=== PATIENT | female | born 1990 | race African-American/Black ===

== ENCOUNTER 2017-06-16 15:16 | Emergency (ER) | payer SELFPAY ==
[~2017-06-16] VITALS: Ht 170.2 cm; Wt 73.5 kg
[2017-06-16 15:47] VITALS: BP 120/84
--- NOTE | 2017-06-16 15:56 | NUR ---
Patient to bed 04.
--- NOTE | 2017-06-16 16:30 | NUR ---
ASSUMED CARE OF PATIENT; PT PRESENTS TO ER W/C/O DIZZINESS, GENERALIZED WEAKNESS SINCE INTERITTENTLY; PATIENT IS A&OX4; PERRLA; LS CLEAR BL; RR ARE EVEN AND UNLABORED; NO ACUTE RESP DISTRESS NOTED; PT DENIES ABD PAIN; ABD SOFT AND NON-TENDER TO PALPALTION; PATIENT REPOST NAUSEA BUT DENIES VOMITTING; PT REPORTS DECREASED APPETITE; PATIENT REPORTS LIGHTHEADNESS AND GENERAZLED WEAKNESS X 1 MONTH; PT REPORTS HEMATURIA SINCE ; PT STATES " DOCTORS SAY IT WILL RESOLVE OVER TIME; PATIENT REPORTS "HX BLOOD TRANSFUSION IN 2008 FOR ANEMIA, REPEATED UTI'S" ER [employer]OTE[employer] SUPERVISOR IS BY BEDSIDE EXAMINING PATIENT; ALL NEEDS MET AT THIS TIME; VSS; WILL CONTINUE TO MONITOR
[2017-06-16 16:40] LABS: BASOPHILS # (AUTO) 0.2 K/uL (0.00-0.22); BASOPHILS % (AUTO) 3.1 % (0.0-2.0); EOSINOPHILS # (AUTO) 0.1 K/uL (0-0.4); EOSINOPHILS % (AUTO) 1.6 % (0.0-4.0); HEMATOCRIT 37.4 % (36-48); HEMOGLOBIN 11.7 g/dL (12.0-16.0); LYMPHOCYTES # (AUTO) 1.2 K/uL (2.5-16.5); LYMPHOCYTES % (AUTO) 22.9 % (20.5-51.1); MEAN CORPUSCULAR HEMOGLOBIN 27 pg (27-31); MEAN CORPUSCULAR HGB CONC 31 g/dL (33-37); MEAN CORPUSCULAR VOLUME 88 fL (80-94); MONOCYTES # (AUTO) 0.5 K/uL (0.8-1.0); MONOCYTES % (AUTO) 10.6 % (1.7-9.3); NEUTROPHILS # (AUTO) 3.2 K/uL (1.8-7.7); NEUTROPHILS % (AUTO) 61.8 % (42.2-75.2); PLATELET COUNT (AUTO) 155 K/uL (140-450); RED BLOOD CELL COUNT(AUTO) 4.26 MIL/uL (4.20-5.40); RED CELL DISTRIBUTION WIDTH 14.2 % (11.6-13.7); WHITE BLOOD COUNT (AUTO) 5.2 K/uL (4.8-10.8)
[2017-06-16 16:40] LABS: APPEARANCE,URINE TURBID (CLEAR); BILIRUBIN,URINE 1+ (NEGATIVE); BLOOD, URINE 3+ (NEGATIVE); COLOR,URINE RED (YELLOW); LEUKOCYTE ESTERASE ,URINE NEGATIVE (NEGATIVE); NITRITE, URINE POSITIVE (NEGATIVE); PH,URINE 5.5 (5.0-9.0); PROTEIN,URINE 3+ (NEGATIVE); UGLUCOSE NEGATIVE (NEGATIVE)
[2017-06-16 16:43] LABS: ICTOTEST NEGATIVE (NEGATIVE)
[2017-06-16 16:44] LABS: BACTERIA,URINE 4+ /HPF (None Seen); RBC,URINE TOO NUMEROUS TO COUN /HPF (0-5); SQUAMOUS EPITHELIAL CELL,UR 4-10 (MOD) /LPF (0-3 (FEW)); WBC,URINE 6-15 (FEW) /HPF (0-5)
--- NOTE | 2017-06-16 16:44 | NUR ---
PT TO XRAY VIA WHEELCHAIR ACCOMPANIED BY BREWER HELPER
[2017-06-16 16:46] LABS: ANION GAP 12.9 (8-16); CALCIUM 8.4 mg/dL (8.5-10.1); CARBON DIOXIDE 25.9 mmol/L (21-32); CREATININE 0.8 mg/dL (0.6-1.3); POTASSIUM 3.8 mmol/L (3.5-5.1)
--- NOTE | 2017-06-16 16:50 | NUR ---
Patient back from XRAY via wheelchair per tech
[2017-06-16 17:32] VITALS: BP 122/70
--- NOTE | 2017-06-16 17:32 | NUR ---
Patient discharged with v/s stable. Written and verbal after care instructions given and explained. Patient alert, oriented and verbalized understanding of instructions. Ambulatory with steady gait. All questions addressed prior to discharge. ID band removed. Patient advised to follow up with PMD. Rx of MACROBID 100MG given. Patient educated on indication of medication including possible reaction and side effects. Opportunity to ask questions provided and answered.
== END 2017-06-16 17:32 | disposition home or self-care (01) ==
LOC: MED 15:16
DX: N39.0 Urinary tract infection, site not specified (principal)
CPT/HCPCS: 36415; 71020; 80048; 81001; 81025; 85025; 87086; 87186; 99285

== ENCOUNTER 2019-07-23 08:08 | Emergency (ER) | payer MEDICAID ==
[~2019-07-23] VITALS: Ht 170.2 cm; Wt 79.4 kg
--- NOTE | 2019-07-23 08:08 | NUR ---
Patient BIBA BLS, transferred to bed 8. RN evaluating patient at bedside.
[2019-07-23 08:09] VITALS: BP 129/90
--- NOTE | 2019-07-23 08:10 | NUR ---
PATIENT BIBA WITH C/O SERVERE LUQ ABDOMINAL PAIN WITH NAUSEA SINCE 0600. AAOX4, LUNGS CLEAR BL; HR EVEN AND REGULAR; PT DENIES ANY FEVER, CP, SOB, OR COUGH AT THIS TIME; SKIN IS PINK/WARM/DRY; PATIENT STATES PAIN OF 10/10 AT THIS TIME; VSS; PATIENT POSITIONED FOR COMFORT; HOB ELEVATED; BEDRAILS UP X2; BED DOWN. ER MD MADE AWARE OF PT STATUS.
--- NOTE | 2019-07-23 08:15 | NUR ---
Patient being evaluated by physician at bedside.
[2019-07-23] MEDS ORDERED: ACETAMINOPHEN 325 MG TAB PO ONE (08:20)
--- NOTE | 2019-07-23 09:00 | NUR ---
NOT ABLE TO COLLECT URINE AT THIS TIME, DR. ROOT AWARE.
[2019-07-23 09:27] LABS: BASOPHILS % (AUTO) 0.4 % (0.0-2.0); EOSINOPHILS # (AUTO) 0.1 K/uL (0-0.4); EOSINOPHILS % (AUTO) 0.6 % (0.0-4.0); HEMATOCRIT 24.4 % (36-48); HEMOGLOBIN 7.3 g/dL (12.0-16.0); LYMPHOCYTES # (AUTO) 0.8 K/uL (2.5-16.5); LYMPHOCYTES % (AUTO) 8.8 % (20.5-51.1); MEAN CORPUSCULAR HEMOGLOBIN 22 pg (27-31); MEAN CORPUSCULAR HGB CONC 30 g/dL (33-37); MEAN CORPUSCULAR VOLUME 74.3 fL (80-94); MONOCYTES # (AUTO) 0.9 K/uL (0.8-1.0); MONOCYTES % (AUTO) 9.8 % (1.7-9.3); NEUTROPHILS # (AUTO) 7.4 K/uL (1.8-7.7); NEUTROPHILS % (AUTO) 80.4 % (42.2-75.2); PLATELET COUNT (AUTO) 147 K/uL (140-450); RED BLOOD CELL COUNT(AUTO) 3.28 MIL/uL (4.20-5.40); RED CELL DISTRIBUTION WIDTH 18.7 % (11.6-13.7); WHITE BLOOD COUNT (AUTO) 9.3 K/uL (4.8-10.8)
--- NOTE | 2019-07-23 09:30 | NUR ---
PT IS ASLEEP IN BED, VSS, NO S/S OF DISTRESS.
[2019-07-23 09:37] LABS: ANION GAP 10.8 (8-16); CARBON DIOXIDE 27.1 mmol/L (21-32); CREATININE 1.2 mg/dL (0.6-1.3); POTASSIUM 3.9 mmol/L (3.5-5.1)
[2019-07-23] MEDS ORDERED: NACL 0.9% 1,000 ML IV ONE (09:55)
--- NOTE | 2019-07-23 09:57 | NUR ---
Dr. Conte evaluating patient at bedside.
--- NOTE | 2019-07-23 10:13 | NUR ---
Ultrasound at bedside.
--- NOTE | 2019-07-23 10:15 | NUR ---
IV INSERTED TO LEFT AC, 22GA, PT TOLERATED WELL, STARTED NS BOLUS ORDERED, WILL CONTINUE TO MONITOR.
--- NOTE | 2019-07-23 10:29 | NUR ---
Patient taken to XRAY via wheelchair by tech.
--- NOTE | 2019-07-23 11:15 | NUR ---
IV BOLUS COMPLETED, PT TOLERATED, DENIES PAIN, VSS.
[2019-07-23 11:28] LABS: APPEARANCE,URINE CLOUDY (CLEAR); BILIRUBIN,URINE 1+ (NEGATIVE); BLOOD, URINE 3+ (NEGATIVE); LEUKOCYTE ESTERASE ,URINE TRACE (NEGATIVE); NITRITE, URINE POSITIVE (NEGATIVE); PH,URINE 5.5 (5.0-9.0); UGLUCOSE NEGATIVE (NEGATIVE)
[2019-07-23 11:30] LABS: COLOR,URINE AMBER (YELLOW); RBC,URINE TOO NUMEROUS TO COUN /HPF (0-5); WBC,URINE 16-25 (MOD) /HPF (0-5)
--- NOTE | 2019-07-23 12:00 | NUR ---
NO S/S OF DISTRESS, PT RESTING IN BED
--- NOTE | 2019-07-23 13:00 | NUR ---
PT STATED HUNGRY, LUNCH OFFERED.
[2019-07-23] MEDS ORDERED: cefTRIAXone 1,000 MG VIAL ONE (13:35)
[2019-07-23 14:05] VITALS: BP 116/75
--- NOTE | 2019-07-23 14:05 | NUR ---
Patient discharged with v/s stable. Written and verbal after care instructions given and explained. Rx of KEFLEX given. Patient educated on indication of medication including possible reaction and side effects. All questions addressed prior to discharge. IV REMOVED, ID band removed. Patient advised to COME BACK 12 HRS LATER FOR RECHECK, Opportunity to ask questions provided and answered.
== END 2019-07-23 14:05 | disposition home or self-care (01) ==
LOC: MED 08:08
DX: N39.0 Urinary tract infection, site not specified (principal); D64.9 Anemia, unspecified
CPT/HCPCS: 36415; 74022; 76700; 80048; 81001; 81025; 84703; 85025; 87086; 87186; 96361; 96365; 99284; J0696; J7030; Q0092

== ENCOUNTER 2019-11-12 23:15 | Inpatient (IN) | payer SELFPAY ==
[~2019-11-12] VITALS: Ht 170.2 cm; Wt 82.1 kg
[2019-11-12 23:18] VITALS: BP 140/76
--- NOTE | 2019-11-12 23:27 | NUR ---
PT AMBULATED TO LOBBY. URINE SPECIMEN CUP PROVIDED.
--- NOTE | 2019-11-12 23:29 | NUR ---
PT AMBULATED TO BED #8
--- NOTE | 2019-11-12 23:56 | NUR ---
29 YEAR OLD FEMALE COMPLAINS OF FEELING MORE FATIGUED LATELY. PATIENT DENIES NAUSEA, VOMITTING, DIARRHEA, CHEST PAIN, AND SHORTNESS OF BREATHE. PATIENT ALERT AND ORIENTED, BREATHING EVEN AND UNLABORED, SKIN WARM AND DRY. BED IN LOWEST POSITION, LOCKED, BED RAIL UPX1.
--- NOTE | 2019-11-13 00:40 | NUR ---
Dr. Villalba examining patient.
[2019-11-13 01:10] LABS: APPEARANCE,URINE CLEAR (CLEAR); BILIRUBIN,URINE NEGATIVE (NEGATIVE); BLOOD, URINE 3+ (NEGATIVE); COLOR,URINE YELLOW (YELLOW); LEUKOCYTE ESTERASE ,URINE TRACE (NEGATIVE); NITRITE, URINE POSITIVE (NEGATIVE); UGLUCOSE NEGATIVE (NEGATIVE)
[2019-11-13 01:11] LABS: BASOPHILS # (AUTO) 0.1 K/uL (0.00-0.22); EOSINOPHILS # (AUTO) 0.1 K/uL (0-0.4); MONOCYTES # (AUTO) 0.6 K/uL (0.8-1.0); NEUTROPHILS # (AUTO) 3.7 K/uL (1.8-7.7); WHITE BLOOD COUNT (AUTO) 6.5 K/uL (4.8-10.8)
[2019-11-13 01:20] LABS: ANION GAP 12.5 (8-16); CARBON DIOXIDE 26.2 mmol/L (21-32); CREATININE 0.6 mg/dL (0.6-1.3); POTASSIUM 3.7 mmol/L (3.5-5.1)
--- NOTE | 2019-11-13 01:21 | NUR ---
PATIENT ALERT AND AWAKE, TALKING ON PHONE, BREATHING EVEN AND UNLABORED
[2019-11-13 01:23] LABS: EOSINOPHILS % (AUTO) 2.2 % (0.0-4.0); HEMATOCRIT 26.5 % (36-48); LYMPHOCYTES # (AUTO) 2.1 K/uL (2.5-16.5); LYMPHOCYTES % (AUTO) 31.4 % (20.5-51.1); MEAN CORPUSCULAR HEMOGLOBIN 17 pg (27-31); MEAN CORPUSCULAR HGB CONC 26 g/dL (33-37); MEAN CORPUSCULAR VOLUME 64.6 fL (80-94); NEUTROPHILS % (AUTO) 56.4 % (42.2-75.2); PLATELET COUNT (AUTO) 358 K/uL (140-450); RED CELL DISTRIBUTION WIDTH 24.2 % (11.6-13.7)
[2019-11-13 01:26] LABS: TOTAL BILIRUBIN 0.7 mg/dL (0.0-1.0)
[2019-11-13 01:30] LABS: WBC,URINE 16-25 (MOD) /HPF (0-5)
[2019-11-13 01:33] LABS: HEMOGLOBIN 6.9 g/dL (12.0-16.0)
[2019-11-13] MEDS ORDERED: LEVOFLOXACIN 500 MG/D5W PREMIX 100 ML IV ONE (01:45)
[2019-11-13] MEDS ORDERED: NACL 0.9% 1,000 ML IV ONE (01:45)
[2019-11-13] MEDS ORDERED: ONDANSETRON 4 MG/2 ML VIAL IM/IVP PRN (01:50)
[2019-11-13] MEDS ORDERED: HYDROcodone/APAP 5/325 MG 1 TAB TAB PO PRN (01:50)
[2019-11-13] MEDS ORDERED: MORPHINE SULFATE 2 MG/ML SYR IVP PRN (01:50)
[2019-11-13] MEDS ORDERED: DOCUSATE SODIUM 100 MG GELCAP PO PRN (01:50)
[2019-11-13] MEDS ORDERED: ACETAMINOPHEN 325 MG TAB PO PRN (01:50)
[2019-11-13] MEDS ORDERED: LORazepam 2 MG/ML VIAL IM/IVP PRN (01:50)
[2019-11-13] MEDS ORDERED: ZOLPIDEM 5 MG TAB PO PRN (01:50)
--- NOTE | 2019-11-13 01:55 | NUR ---
RECEIVED REPORT FROM LAISHA LANDRY. TRANSFER OF CARE AT THIS TIME.
[2019-11-13] MEDS ORDERED: NACL 0.9% 1,000 ML IV SCH (02:00)
[2019-11-13 02:08] LABS: BARBITURATE, URINE NEG. ng/ml (NEG <=200); BENZODIAZEPINE, URINE NEG. ng/mL (NEG <=200); CANNABINOID, URINE POS. ng/mL (NEG <=50); COCAINE, URINE NEG. ng/mL (NEG <=300); OPIATE, URINE NEG. ng/mL (NEG <=2000); PHENCYCLIDINE SCREEN,URINE NEG. ng/mL (NEG <=25)
[2019-11-13 02:17] LABS: PROTHROMBIN TIME 9.7 secs (10.8-13.4)
[2019-11-13 02:24] LABS: CHOL/HDL RATIO 2.3 (1-4.5); MAGNESIUM 1.9 mg/dL (1.8-2.4); THYROID STIMULATING HORMONE 1.22 uIU/mL (0.34-3.74)
--- NOTE | 2019-11-13 02:27 | NUR ---
Patient will be admitted to care of Dr. Agustin. Admited to TELE. Will go to room 126A. Belongings list completed. Report to LAISHA Castillo.
--- NOTE | 2019-11-13 02:30 | NUR ---
ADMITTED 29 YEARS OLD FEMALE FROM ER VIA [facility] TO 126A, CC: GENERALIZED WEAKNESS. DX: SEVERE ANEMIA. SEE NURSING ADMISSION ASSESSMENT AND HISTORY. ORIENTED TO ROOM AND UNIT ROUTINES. CARE BOARD FILL UP. CALL LIGHT WITHIN REACH. PLAN OF CARE DISCUSSED WITH PATIENT, VERBALIZED UNDERSTANDING WELL.
--- NOTE | 2019-11-13 03:35 | NUR ---
CONSENT FOR BLOOD TRANSFUSION SIGNED, COPY GIVEN TO BLOOD BANK FOR [facility] I UNIT RELEASE.
[2019-11-13] MEDS ORDERED: FUROSEMIDE 20 MG TAB PO SCH (04:00)
--- NOTE | 2019-11-13 04:02 | NUR ---
PRE-MEDICATED WITH BENADRYL ORDERED. NORCO GIVEN FOR CRAMPS REQUESTED. I UNIT OF [facility] STARTED, VERIFIED WITH HOSPICE OFFICE COORDINATOR PETRA. VITAL SIGNS STABLE PRIOR. AFEBRILE.
[2019-11-13 04:09] VITALS: BP 110/72
--- NOTE | 2019-11-13 07:00 | NUR ---
PR[facility] COMPLETED, VITAL SIGNS STABLE. AFEBRILE.
--- NOTE | 2019-11-13 07:30 | NUR ---
ENDORSED CARE AT BEDSIDE WITH YOKASTA INTERIANO, PATIENT IN STABLE CONDITION.
--- NOTE | 2019-11-13 07:34 | NUR ---
RECEIVED BEDSIDE REPORT FROM PM RN PT AWAKE IN BED PT APPEARS STABLE AND IN NO APPARENT DISTRESS. ALL SAFETY MEASURES ARE IN PLACE. WILL CONTINUE TO MONITOR.
[2019-11-13] MEDS ORDERED: FUROSEMIDE 20 MG TAB PO PRN (08:00)
[2019-11-13] MEDS ORDERED: SODIUM FERRIC GLUCONATE 125 MG in NACL 0.9% 100 ML IV SCH ×4 (08:00)
[2019-11-13] MEDS ORDERED: FERROUS SULFATE 325 MG TABEC PO SCH (08:00)
--- NOTE | 2019-11-13 08:05 | NUR ---
PATIENT HAS BEEN SCREENED AND CATEGORIZED LOW NUTRITION RISK. PATIENT WILL BE SEEN WITHIN 7 DAYS OF ADMISSION. 11/19/[address]
[2019-11-13] MEDS ORDERED: SULF-58 PO (08:36)
[2019-11-13] MEDS ORDERED: FER325 PO (08:36)
[2019-11-13] MEDS ORDERED: VITC500 PO (08:36)
[2019-11-13] MEDS ORDERED: LACT10CA PO (08:36)
[2019-11-13 08:45] VITALS: BP 110/63
--- NOTE | 2019-11-13 08:56 | NUR ---
ADMINISTERED MORNING MEDICATIONS PT RESTING COMFORTABLY IN BED. PLACED NICOTINE PATCH ON UPPER ARM. SCANNER MALFUNCTION ON WOW 8 MANUAL ENTERED MEDICATIONS. DOUBLE CHECKED AND VERIFIED ALL CORRECT MEDICATIONS FERROUS SULFATE INFUSING
[2019-11-13] MEDS ORDERED: NICOTINE TRANSD SYS 14 MG/24 HR PATCH TD SCH (09:00)
[2019-11-13] MEDS ORDERED: LACTOBACILLUS RHAMNOSUS GG 1 EACH CAP PO SCH (09:00)
[2019-11-13] MEDS ORDERED: ASCORBIC ACID 500 MG TAB PO SCH (09:00)
[2019-11-13 09:16] LABS: BASOPHILS # (AUTO) 0.1 K/uL (0.00-0.22); BASOPHILS % (AUTO) 1.3 % (0.0-2.0); EOSINOPHILS # (AUTO) 0.1 K/uL (0-0.4); EOSINOPHILS % (AUTO) 2.8 % (0.0-4.0); HEMATOCRIT 26.7 % (36-48); HEMOGLOBIN 7.3 g/dL (12.0-16.0); LYMPHOCYTES # (AUTO) 1.9 K/uL (2.5-16.5); MEAN CORPUSCULAR HEMOGLOBIN 18 pg (27-31); MEAN CORPUSCULAR HGB CONC 27 g/dL (33-37); MONOCYTES # (AUTO) 0.5 K/uL (0.8-1.0); MONOCYTES % (AUTO) 10.7 % (1.7-9.3); NEUTROPHILS % (AUTO) 44.2 % (42.2-75.2); PLATELET COUNT (AUTO) 317 K/uL (140-450); RED BLOOD CELL COUNT(AUTO) 3.98 MIL/uL (4.20-5.40); RED CELL DISTRIBUTION WIDTH 26.9 % (11.6-13.7); WHITE BLOOD COUNT (AUTO) 4.6 K/uL (4.8-10.8)
[2019-11-13 10:45] LABS: ANION GAP 13.2 (8-16); CARBON DIOXIDE 22.5 mmol/L (21-32); CREATININE 0.6 mg/dL (0.6-1.3); POTASSIUM 3.7 mmol/L (3.5-5.1)
[2019-11-13 10:49] LABS: MAGNESIUM 1.7 mg/dL (1.8-2.4); PHOSPHORUS 4.1 mg/dL (2.5-4.9)
[2019-11-13] MEDS ORDERED: NAPR-54 PO (11:43)
--- NOTE | 2019-11-13 11:46 | NUR ---
FREQUENT ROUNDING ON PT PT APPEARS STABLE AND IN NO APPARENT DISTRESS. ALL SAFETY MEASURES ARE IN PLACE WILL CONTINUE TO MONITOR.
[2019-11-13] MEDS ORDERED: MAG SULF 2000 MG/WATER PREMIX 50 ML IV SCH (12:00)
[2019-11-13 12:45] VITALS: BP 123/87
--- NOTE | 2019-11-13 13:43 | NUR ---
FREQUENT ROUNDING ON PT PT APPEARS STABLE AND IN NO APPARENT DISTRESS. ALL SAFETY MEASURES ARE IN PLACE WILL CONTINUE TO MONITOR
--- NOTE | 2019-11-13 15:45 | NUR ---
REVIEWED DISCHARGE INSTRUCTIONS WITH PT. REVIEWED DISCHARGE MEDICATIONS REVIEWED DIET AND EXERCISE. ANSWERED ALL PATIENTS QUESTIONS. REMOVED ID BAND REMOVED IV IV TIP INTACT. PT AMBULATED OFF THE UNIT WITH ALL PERSONAL BELONGINGS
[2019-11-14] MEDS ORDERED: LEVOFLOXACIN 500 MG/D5W PREMIX 100 ML IV SCH
[2019-11-14 06:07] LABS: FOLIC ACID 11.3 ng/mL (>3.0)
== END 2019-11-13 15:15 | disposition home or self-care (01) | DRG 760 ==
LOC: MED 23:15 → MMU 11-13 01:51
PROVIDERS: ADMIT General Practice; ATTEND General Practice
PROC: 30233N1 Transfusion of Nonautologous Red Blood Cells into Peripheral Vein, Percutaneous Approach (ICD-10-PCS; principal; 2019-11-13)
DX: N92.0 Excessive and frequent menstruation with regular cycle (principal); N39.0 Urinary tract infection, site not specified; N94.6 Dysmenorrhea, unspecified; F17.200 Nicotine dependence, unspecified, uncomplicated; I10 Essential (primary) hypertension; D50.0 Iron deficiency anemia secondary to blood loss (chronic); E28.2 Polycystic ovarian syndrome; D25.2 Subserosal leiomyoma of uterus; F12.10 Cannabis abuse, uncomplicated; F15.10 Other stimulant abuse, uncomplicated; E86.0 Dehydration; E83.42 Hypomagnesemia; Z71.51 Drug abuse counseling and surveillance of drug abuser
CPT/HCPCS: 36415; 71045; 76830; 80048; 80053; 80305; 81001; 81025; 82607; 82728; 82746; 83036; 83540; 83690; 83735; 84100; 84134; 84443; 85025; 85045; 85610; 85730; 86886; 86900; 86901; 86920; 87040; 87081; 87086; 87186; 99285; J1956; J2916; J3475; J7030; P9016; Q0092; Q0163